=== PATIENT | female | born 2000 | race Hispanic/Latino ===

== ENCOUNTER 2024-06-16 10:56 | Emergency (ER) | payer SELFPAY ==
--- NOTE | ~2024-06-16 | CT_ITS ---
Non-contrast Head CT History: Head injury Technique: Axial non-contrast imaging of the brain was performed. Dose reduction technique was used on this scan by utilizing automated exposure control and iterative reconstruction technique. The dose -length product (DLP) was 605.33 mGy-cm. Findings: There is no evidence of intracranial hemorrhage, mass lesion, or acute infarct. Brain par enchyma appears normal. The ventricles and subarachnoid spaces are normal in size. The calvarium ap pears normal. The visualized paranasal sinuses and mastoid air cells are clear. Impression: No significant abnormality seen. Reviewed, dictated and finalized at [facility]. [employer] Impression: No significant abnormality seen.
[2024-06-16 11:03] VITALS: BP 120/64; PULSE 60; RESP 16; TEMP 36.4; O2SAT 100
[2024-06-16 12:09] VITALS: BP 102/61; PULSE 59; RESP 18; TEMP 36.7; O2SAT 100
[2024-06-16] MEDS: TETANUS,DIPHTHERIA,AC PERTUSSIS ADULT (0.5 ML) BOOSTRIX IM (12:45)
[2024-06-16 13:10] LABS: Glucose Point of Care 97 mg/dl (65-105)
--- NOTE | 2024-06-16 13:15 | PC.NURSE ---
Pt. had a sincople episode witnessed by another RN after lidocaine injection in finger. Pt did not hit her head and was moved onto a stretcher. Pt. A&Ox4 immediately after event. MD Stephenson at bedside right afterward. Pt. states she had a similar event yesterday, but did hit her head. See MD Stephenson orders for additional interventions. Per , pt given food and drink.
--- NOTE | 2024-06-16 13:34 | ED.SKABFB ---
HPI - Skin/Abscess/Foreign Bdy General Chief complaint: Skin/Abscess/Foreign Body Stated complaint: multiple complaints Time Seen by Provider: 06/16/24 12:11 History of Present Illness HPI narrative: Patient is a 23-year-old female who presents ER with an abscess of the left 3rd digit. It is a paronychia. She tried to drain it yesterday but passed out due to the pain. Mild posterior headache. No change in vision or hearing. She has had swelling to the digit over last 6 days. No known injury. Unknown last tetanus shot. Related Data Allergies Allergy/AdvReac Type Severity Reaction Status Date / Time No Known Allergies Allergy Verified 06/16/24 11:02 Review of Systems Review of Systems: All systems reviewed & are unremarkable except as noted in HPI and below Constitutional: Constitutional: Reports no additional constitutional complaints Cardiovascular: Cardiovascular: Reports no additional cardiovascular complaints Respiratory: Respiratory: Reports no additional respiratory complaints Musculoskeletal: Musculoskeletal: Reports no additional musculoskeletal complaints Integumentary/Breasts: Skin/Breast: Reports system reviewed and no additional complaints, except as docu PMFSH Past Medical History Medical History (Updated 06/16/24 @ 13:40 by William Stephenson MD) Healthy female adult Surgical History Surgical History (Updated 06/16/24 @ 13:36 by William Stephenson MD) No history of previous surgery Exam Narrative: GENERAL: Well-appearing, well-nourished, and in no acute distress. HEAD: Normocephalic, atraumatic. ENT: Mucous membranes moist. HEART: Regular rate and rhythm. Normal peripheral pulses. EXTREMITIES: Normal range of motion. No edema. SKIN: Warm, dry, no rash. paronychia left 3rd digit. NEURO: Alert and oriented x3. PSYCH: Normal mood and affect. Course Course Emergency Course: Patient with likely vasovagal event after digital block and tetanus shot. As precaution head scan due to previous syncopal episode. Accu-Chek normal. Discharge home. Vital Signs Vital signs: Vital Signs Temperature 97.6 F 06/16/24 11:03 Pulse Rate 60 06/16/24 11:03 Respiratory Rate 16 06/16/24 11:03 Blood Pressure 120/64 06/16/24 11:03 Pulse Oximetry 100 06/16/24 11:03 Oxygen Delivery Room Air 06/16/24 11:03 Temperature 98.0 F 12/31/24 12:09 Pulse Rate 59 L 06/16/24 12:09 Respiratory Rate 18 06/16/24 12:09 Blood Pressure 102/61 06/16/24 12:09 Pulse Oximetry 100 06/16/24 12:09 Oxygen Delivery Room Air 06/16/24 11:03 Procedures Abscess I/D hand: Side (if applicable): left (3rd digit) Local Anesthetic: lidocaine 1% and with epi Amount of anesthesia used (mL): 1.5 Technique: incised with #11 blade Packing used?: none I&D Results: Pus MDM - Skin/Abscess/Foreign Bdy Lab Data Labs: Lab Results 06/16/24 Range/Units 13:08 POC Capillary Glucose 97 (65-105) mg/dl Imaging Data Radiologist's impression: ITS Impressions Head CT 06/16/24 13:35 Impression: No significant abnormality seen. Discharge Plan Discharge Clinical Impression: Paronychia Patient Disposition: Home, Self-Care Condition: Stable Instructions: Antibiotic Form, Paronychia (ED) Additional Instructions: Return ER if you have fever 100.4? F, you have worsening swelling, or you have additional concerns. Patient Language: Sinhala Prescriptions: New doxycycline hyclate 100 mg capsule 100 mg PO BID Qty: 14 0RF Follow-up/Referrals: UNKNOWN,DOCTOR [Primary Care Provider] - 1 Week
--- NOTE | 2024-06-16 13:34 | PC.NURSE ---
Per MD Stephenson, bedside no longer needed.
[2024-06-16 14:28] VITALS: BP 109/56; PULSE 90; RESP 16; O2SAT 98
== END 2024-06-16 14:31 | disposition home or self-care (01) ==
PROVIDERS: Emergency Provider Emergency Medicine
DX: L03.012 Cellulitis of left finger (principal); Z23 Encounter for immunization
CPT/HCPCS: 10060; 70450; 82948; 90471; 90715; 99284